=== PATIENT | male | born 1960 | race Caucasian/White ===

== ENCOUNTER 2019-03-12 08:28 | Outpatient (RCR) | payer MEDICARE, MEDICAID, SELFPAY | END 2019-04-11 23:59 | disposition home or self-care (01) | LOC: APT 08:28 | PROVIDERS: Family Provider Nurse Practitioner Family; PCP Nurse Practitioner; Visit Provider Nurse Practitioner | DX: R29.6 Repeated falls (principal) ==

== ENCOUNTER 2019-10-20 15:15 | Emergency (ER) | payer MEDICARE, MEDICAID, SELFPAY ==
[2019-10-20 15:20] VITALS: BP 150/94; PULSE 95; RESP 18; TEMP 36.8; O2SAT 96; BMI 25.4
--- NOTE | 2019-10-20 15:32 | ED_ITS ---
Documented by User: SHARONA Fisher 10/21/19 07:10 HPI - Abdominal Pain General: Chief Complaint: Abdominal Pain Stated Complaint: r side pain Time Seen by Provider: 10/20/19 15:20 History of Present Illness: HPI narrative: Patient is a 59-year-old male who comes to the ED with right sided abdominal pain. Patient says symptoms started approximately 6 months ago. He has been dealing with the pain but these past couple days got worse and he wants to figure out what is going on. Pain is on the right upper and lower quadrant of the abdomen. Described as kind of constant sharp pain. He rates the pain a 9 out of 10 currently. He also complains of having some episodic sharp right rib pain but currently he is not having any rib pain. Denies any fever, chills, nausea/vomiting, heart palpations, diarrhea, constipation, blood in the stool, dysuria, hematuria or past history of kidney stones. Associated Symptoms: Denies chills, constipation, diarrhea, dysuria, fever(s), hematochezia, hematuria, nausea and vomiting Review of Systems Const: Denies: fever(s), chills or fatigue Eyes: Denies: change in vision or eye discomfort ENMT: Denies: throat pain, odynophagia, nasal discharge or nasal congestion Card: Denies: chest pain, palpitations, edema, swelling of feet/ankles, dyspnea on exertion or orthopnea Resp: Denies: dyspnea, productive cough or non-productive cough GI: Reports: abdominal pain (Right side ); Denies: nausea, vomiting, diarrhea, constipation or hematochezia : Denies: flank pain, difficulty urinating, dysuria or hematuria Musc: Denies: neck pain, back pain or extremity swelling Skin/Breast: Denies: rash or new lesions Neuro: Denies: headache(s), numbness in extremities or weakness in extremities Physical Exam Const: COMMON NORMALS: patient oriented x3 and alert GENERAL APPEARANCE: cooperative HENMT: COMMON NORMALS: normocephalic HEAD & SCALP: normocephalic MOUTH: Normal oral and palatal mucosa present THROAT: posterior oropharynx normal and uvula midline Eye: COMMON NORMALS: Equal, round and reactive pupils present PUPIL: Yes Equal, round and reactive pupils present Neck/C-Spine: COMMON NORMALS: supple GENERAL: Yes normal visual inspection Resp: COMMON NORMALS: normal respiratory effort, No retractions, No use of accessory muscles and clear to auscultation bilaterally AUSCULTATION: clear to auscultation bilaterally Cardio: COMMON NORMALS: regular rate, regular rhythm, S1 normal heart sound present, S2 normal heart sound present, No gallops present (Cardio), No clicks present (Cardio), No murmurs present (Cardio) and Peripheral pulses 2+ throughout RATE: regular rate RHYTHM: regular rhythm HEART SOUNDS: S1 normal heart sound present and S2 normal heart sound present PERIPHERAL PULSES: Peripheral pulses 2+ throughout GI: COMMON NORMALS: Normal to inspection, nondistended, normoactive bowel sounds present, Soft to palpation and no masses PALPATION: Yes Soft to palpation and Yes Tenderness to palpation present (GI) Details: RLQ and RUQ OTHER: Patient is having pain and tenderness on the right upper and right lower quadrant of the abdomen. : COMMON NORMALS: Yes no CVA tenderness BLADDER/KIDNEY EXAM: Yes no CVA tenderness Back/Pelvis: COMMON NORMALS: no CVA tenderness Extremity: COMMON NORMALS: normal to inspection and no pedal edema Neuro: COMMON NORMALS: patient oriented x3 SENSORIUM/ORIENTATION: Yes alert GAIT: Yes Normal gait present Skin: COMMON NORMALS: no rashes or lesions noted GENERAL SKIN EXAM: no rashes or lesions noted and dry skin Course Vital Signs: Vital signs: Vital Signs Temperature 98.3 F 10/20/19 15:20 Pulse Rate 93 10/20/19 18:36 Respiratory Rate 18 10/20/19 18:36 Blood Pressure 134/82 10/20/19 18:36 Pulse Oximetry 94 10/20/19 18:36 MDM - Abdominal Pain Lab Data: Attestation: I reviewed the patient's lab results. Labs: Lab Results 10/20/19 10/20/19 10/20/19 Range/Units 15:49 16:00 16:00 WBC 17.1 H (4.0-10.0) 10^3/ uL RBC 4.55 (4.1-5.3) 10^6/u L Hgb 15.0 (11.7-16.6) g/dL Hct 45.2 (42.0-52.0) % MCV 99.3 H (80-94) fL MCH 33.0 (28.0-34.0) pg MCHC 33.2 (30.0-36.0) g/dL RDW 13.6 (12.1-15.1) % Plt Count 661 H (130-400) 10^3/c mm MPV 9.5 (7.4-10.4) fL Neut % (Auto) 78.1 % Lymph % (Auto) 8.8 % [place] % (Auto) 9.9 % Eos % (Auto) 1.1 % Baso % (Auto) 1.5 % Neut # (Auto) 13.41 H (1.8-7.7) 10^3/u L Lymph # (Auto) 1.5 (0.8-4.8) 10^3/u L [place] # (Auto) 1.7 H (0.2-0.9) 10^3/u L Eos # (Auto) 0.2 (0.0-0.8) 10^3/u L Baso # (Auto) 0.3 H (0.0-0.1) 10^3/u L Nucleated RBC % (a uto) 0 % Nucleated RBCs # 0.0 /100WBC Sodium 135 L (136-145) mmol/L Potassium 4.3 (3.5-5.1) mmol/L Chloride 101 (98-107) mmol/L Carbon Dioxide 21 L (22-29) mmol/L Anion Gap 17.3 (5-19) BUN 14 (6-20) mg/dL Creatinine 0.9 (0.7-1.2) mg/dL GFR Calculation 87.0 L (90-130) mL/min Glucose 99 (65-115) mg/dL Calculated Osmolal ity 276 L (285-295) mOsm/k g Calcium 10.3 (8.5-10.5) mg/dL Total Bilirubin 0.5 (0.15-1.2) mg/dL AST 35 (0-40) U/L ALT 21 (0-41) U/L Alkaline Phosphata se 100 (40-130) IU/L Total Protein 8.0 (6.6-8.7) g/dL Albumin 5.0 (3.5-5.2) g/dL Globulin 3.0 (1.3-4.6) g/dL Lipase 101 H (13-60) U/L Urine Color Yellow (Yellow) Urine Appearance Clear (CLEAR) Urine pH 5 (5-7) Ur Specific Gravit y 1.015 (1.005-1.030) Urine Protein Neg (Negative) Urine Glucose (UA) Norm (Normal) Urine Ketones 1+ H (Negative) Urine Blood Neg (Negative) Urine Nitrate Negative (Negative) Urine Bilirubin Neg (NEGATIVE) Urine Urobilinogen 1 H (Negative) mg/dL Ur Leukocyte Mattie ase Negative (Negative) Imaging Data ^: CXR: Attestation: I personally reviewed and interpreted this imaging study as follows: Radiologist's impression: [address] [address] XRay Report Signed Patient: Rex Alvarez Unit #: [id number] : 1960 Age/Sex: 59 / M ADM Date: 10/20/19 Loc: ER Room/Bed: Attending Dr: Ordering Provider/Ordering MD: Sheldon Gamez Date of Service: 10/20/19 Procedure(s): XR chest 1V portable [id number] Accession Number(s): [id number] Report Number: [id number] PROCEDURE INFORMATION: Exam: XR Chest, 1 View Exam date and time: 10/20/2019 4:14 PM Age: 59 years old Clinical indication: Pain; Other: Righ rib; Additional info: Right rib pain TECHNIQUE: Imaging protocol: XR of the chest Views: 1 view. COMPARISON: CR Chest 1 [place] [id number] 11/03/2017 6:23 PM FINDINGS: Lungs: Unchanged severe hyperinflation and mild fibrosis compatible with COPD. No consolidation. Vascularity is within normal limits. Pleural space: Unremarkable. No pleural effusion. No pneumothorax. Heart/Mediastinum: Unremarkable. No cardiomegaly. Bones/joints: No acute abnormality. XR/XR chest 1V portable [id number] IMPRESSION: No acute findings. Probable severe COPD. Dictated By: Joanna Farias Signed By: Joanna Farias Signed Date/Time: 10/20/19 1630 DD/ 1628 Discharge Plan Discharge Patient Disposition: Home Clinical Impression: Right-sided abdominal pain of unknown cause Condition: Stable Prescriptions: No Action Tylenol 325 mg Tablet 325 mg PO QID PRN (Reason: Pain) RF: 0 atorvastatin 20 mg tablet 20 mg PO DAILY RF: 0 clopidogrel 75 mg tablet 75 mg PO DAILY RF: 0 lisinopril 40 mg tablet 40 mg PO DAILY RF: 0 Discharge Orders: Discharge Order (Routine); Ordered 10/20/19 Ordered By: Maya Finley Referrals: Nuzhat Patino, JUDY [Primary Care Provider] - Patient Instructions: Abdominal Pain (ED) Activity Restrictions/Additional Instructions: Please followup with primary care in 1-2 weeks for continued pain. Discharge Date/Time: 10/20/19 18:51 Sign Out Sign Out Data: Patient Sign Out occurred on 10/20/19 at 17:10. Patient's care was discussed, and care was transferred from to SHARONA Ferrera. Coding Level of Care Code ED Utilization Management Nurse for Chg Fwd Exam Comprehensive Documented by User: SHARONA Ferrera 10/20/19 19:07 HPI - Abdominal Pain General: Chief Complaint: Abdominal Pain Stated Complaint: r side pain Time Seen by Provider: 10/20/19 15:20 Course Vital Signs: Vital signs: Vital Signs Temperature 98.3 F 10/20/19 15:20 Pulse Rate 93 10/20/19 18:36 Respiratory Rate 18 10/20/19 18:36 Blood Pressure 134/82 10/20/19 18:36 Pulse Oximetry 94 10/20/19 18:36 MDM - Abdominal Pain MDM Narrative: Medical decision making narrative: Patient is a nice 59-year-old male who presents to ED today with a complaint of right-sided abdominal pain over the last 6 months. Patient tells me he is not having any nausea, vomiting, diarrhea, constipation. He is urinating normally. No fevers. He states pain seems to be slightly worse when he lies on his right side. Patient's lab work today showing leukocytosis at 17.1. Chemistry panel overall looks good. Lipase is mildly elevated however he does not have any signs or symptoms of acute pancreatitis. Urine does not look suspicious for infection. CT scan w/o acute abnormality (actual dictation does report inflammatory perinephric stranding-I spoke to radiologist on this who stated this was not overly abnormal and very mild-she stated this would not be due to infection or other acute process). Recommend patient follow up with primary care for further evaluation. Patient did mention previous thoracic back surgeries. Possible etiology could include thoracic nerve pain. Lab Data: Labs: Lab Results 10/20/19 10/20/19 10/20/19 Range/Units 15:49 16:00 16:00 WBC 17.1 H (4.0-10.0) 10^3/ uL RBC 4.55 (4.1-5.3) 10^6/u L Hgb 15.0 (11.7-16.6) g/dL Hct 45.2 (42.0-52.0) % MCV 99.3 H (80-94) fL MCH 33.0 (28.0-34.0) pg MCHC 33.2 (30.0-36.0) g/dL RDW 13.6 (12.1-15.1) % Plt Count 661 H (130-400) 10^3/c mm MPV 9.5 (7.4-10.4) fL Neut % (Auto) 78.1 % Lymph % (Auto) 8.8 % [place] % (Auto) 9.9 % Eos % (Auto) 1.1 % Baso % (Auto) 1.5 % Neut # (Auto) 13.41 H (1.8-7.7) 10^3/u L Lymph # (Auto) 1.5 (0.8-4.8) 10^3/u L [place] # (Auto) 1.7 H (0.2-0.9) 10^3/u L Eos # (Auto) 0.2 (0.0-0.8) 10^3/u L Baso # (Auto) 0.3 H (0.0-0.1) 10^3/u L Nucleated RBC % (a uto) 0 % Nucleated RBCs # 0.0 /100WBC Sodium 135 L (136-145) mmol/L Potassium 4.3 (3.5-5.1) mmol/L Chloride 101 (98-107) mmol/L Carbon Dioxide 21 L (22-29) mmol/L Anion Gap 17.3 (5-19) BUN 14 (6-20) mg/dL Creatinine 0.9 (0.7-1.2) mg/dL GFR Calculation 87.0 L (90-130) mL/min Glucose 99 (65-115) mg/dL Calculated Osmolal ity 276 L (285-295) mOsm/k g Calcium 10.3 (8.5-10.5) mg/dL Total Bilirubin 0.5 (0.15-1.2) mg/dL AST 35 (0-40) U/L ALT 21 (0-41) U/L Alkaline Phosphata se 100 (40-130) IU/L Total Protein 8.0 (6.6-8.7) g/dL Albumin 5.0 (3.5-5.2) g/dL Globulin 3.0 (1.3-4.6) g/dL Lipase 101 H (13-60) U/L Urine Color Yellow (Yellow) Urine Appearance Clear (CLEAR) Urine pH 5 (5-7) Ur Specific Gravit y 1.015 (1.005-1.030) Urine Protein Neg (Negative) Urine Glucose (UA) Norm (Normal) Urine Ketones 1+ H (Negative) Urine Blood Neg (Negative) Urine Nitrate Negative (Negative) Urine Bilirubin Neg (NEGATIVE) Urine Urobilinogen 1 H (Negative) mg/dL Ur Leukocyte Mattie ase Negative (Negative) Imaging Data ^: CT Abd/Pel: Radiologist's impression: [place] [address] CT Scan Report Signed Patient: Rex Alvarez Unit #: [id number] : 1960 Age/Sex: 59 / M ADM Date: 10/20/19 Loc: ER Room/Bed: Attending Dr: Ordering Provider/Ordering MD: Sheldon Gamez Date of Service: 10/20/19 Procedure(s): CT abdomen pelvis w con* [id number] Accession Number(s): [id number] Report Number: [id number] PROCEDURE INFORMATION: Exam: CT Abdomen And Pelvis With Contrast Exam date and time: 10/20/2019 4:33 PM Age: 59 years old Clinical indication: Abdominal pain; Localized; Right; Additional info: Right side abdominal pain TECHNIQUE: Imaging protocol: Computed tomography of the abdomen and pelvis with intravenous contrast. Radiation optimization: All CT scans at this facility use at least one of these dose optimization techniques: automated exposure control; mA and/or kV adjustment per patient size (includes targeted exams where dose is matched to clinical indication); or iterative reconstruction. Contrast material: OMNI 300; Contrast volume: 95 ml; Contrast route: INTRAVENOUS (IV); COMPARISON: CT Chest/Abdomen/Pelvis w IV* 03/08/2016 3:42 PM RADIATION DOSE METRICS: Total DLP (mGy-cm): 717.87 FINDINGS: Lungs: There is subpleural atelectasis of the dependent portions of the lungs. Liver: There is a diffuse decrease in hepatic parenchymal density, consistent with fatty infiltration. Gallbladder and bile ducts: Normal. No calcified stones. No ductal dilation. Pancreas: Normal. No ductal dilation. Spleen: Normal. No splenomegaly. Adrenals: Normal. No mass. Kidneys and ureters: There is no evidence of hydronephrosis. There is no evidence of renal calcifications. There is inflammatory perinephric stranding. There is a 1.5 cm midpole simple cyst in the right kidney. Stomach and bowel: Extensive diverticulosis is present in the distal colon. The wall of the distal colon is thickened but collapsed. This appearance may reflect lack of distention however mild colitis cannot be excluded. There is no evidence of intestinal perforation or obstruction. Appendix: A normal appendix is identified. Intraperitoneal space: Unremarkable. No free air. No significant fluid collection. Vasculature: Unremarkable.No abdominal aortic aneurysm. Lymph nodes: Unremarkable.No enlarged lymph nodes. Bladder: There is nonspecific bladder wall thickening. This may be related to incomplete distention. Reproductive: Unremarkable as visualized. Bones/joints: Severe degenerative changes are noted especially in the lower lumbar spine. No acute bony abnormality. Soft tissues: There is a fat-containing umbilical hernia. CT/CT abdomen pelvis w con* [id number] IMPRESSION: 1. The wall of the distal colon is thickened but collapsed. This appearance may reflect lack of distention however mild colitis cannot be excluded. There is diverticulosis without diverticulitis. 2. Unremarkable appendix. Unremarkable gallbladder. No hydronephrosis or obstructing calculi. COMMENTS: Consistent with the [employer]'s Incidental Findings Committee white paper (J Am Jermaine Radiol 2018): Any incidental renal lesion less than 1.0 cm or classified as too small to characterize, or any incidental cystic renal lesion characterized as simple-appearing, is likely benign. No follow-up imaging is recommended for these lesions per consensus recommendations based on imaging criteria. Radiation Dose CTDIVOL = (mGy): DLP = 717.87 (mGy-cm) Dictated By: Joanna Farias Signed By: Joanna Farias Signed Date/Time: 10/20/191733 DD/ 31 Discharge Plan Discharge Patient Disposition: Home Clinical Impression: Right-sided abdominal pain of unknown cause Condition: Stable Prescriptions: No Action Tylenol 325 mg Tablet 325 mg PO QID PRN (Reason: Pain) RF: 0 atorvastatin 20 mg tablet 20 mg PO DAILY RF: 0 clopidogrel 75 mg tablet 75 mg PO DAILY RF: 0 lisinopril 40 mg tablet 40 mg PO DAILY RF: 0 Discharge Orders: Discharge Order (Routine); Ordered 10/20/19 Ordered By: Maya Finley Referrals: Nuzhat Patino, [facility] [Primary Care Provider] - Patient Instructions: Abdominal Pain (ED) Activity Restrictions/Additional Instructions: Please followup with primary care in 1-2 weeks for continued pain. Discharge Date/Time: 10/20/19 18:51 Sign Out Sign Out Data: Patient Sign Out occurred on 10/20/19 at 17:10. Patient's care was discussed, and care was transferred from to SHARONA Ferrera. Coding Level of Care Code ED Utilization Management Nurse for Chg Fwd Exam Comprehensive
--- NOTE | 2019-10-20 15:44 | XRR_ITS ---
PROCEDURE INFORMATION: Exam: XR Chest, 1 View Exam date and time: 10/20/2019 4:14 PM Age: 59 years old Clinical indication: Pain; Other: Righ rib; Additional info: Right rib pain TECHNIQUE: Imaging protocol: XR of the chest Views: 1 view. COMPARISON: CR Chest 1 [place] [id number] 11/03/2017 6:23 PM FINDINGS: Lungs: Unchanged severe hyperinflation and mild fibrosis compatible with COPD. No consolidation. Vascularity is within normal limits. Pleural space: Unremarkable. No pleural effusion. No pneumothorax. Heart/Mediastinum: Unremarkable. No cardiomegaly. Bones/joints: No acute abnormality. XR/XR chest 1V portable [id number] IMPRESSION: No acute findings. Probable severe COPD.
--- NOTE | 2019-10-20 15:44 | CTR_ITS ---
PROCEDURE INFORMATION: Exam: CT Abdomen And Pelvis With Contrast Exam date and time: 10/20/2019 4:33 PM Age: 59 years old Clinical indication: Abdominal pain; Localized; Right; Additional info: Right side abdominal pain TECHNIQUE: Imaging protocol: Computed tomography of the abdomen and pelvis with intravenous contrast. Radiation optimization: All CT scans at this facility use at least one of these dose optimization techniques: automated exposure control; mA and/or kV adjustment per patient size (includes targeted exams where dose is matched to clinical indication); or iterative reconstruction. Contrast material: OMNI 300; Contrast volume: 95 ml; Contrast route: INTRAVENOUS (IV); COMPARISON: CT Chest/Abdomen/Pelvis w IV* 03/08/2016 3:42 PM RADIATION DOSE METRICS: Total DLP (mGy-cm): 717.87 FINDINGS: Lungs: There is subpleural atelectasis of the dependent portions of the lungs. Liver: There is a diffuse decrease in hepatic parenchymal density, consistent with fatty infiltration. Gallbladder and bile ducts: Normal. No calcified stones. No ductal dilation. Pancreas: Normal. No ductal dilation. Spleen: Normal. No splenomegaly. Adrenals: Normal. No mass. Kidneys and ureters: There is no evidence of hydronephrosis. There is no evidence of renal calcifications. There is inflammatory perinephric stranding. There is a 1.5 cm midpole simple cyst in the right kidney. Stomach and bowel: Extensive diverticulosis is present in the distal colon. The wall of the distal colon is thickened but collapsed. This appearance may reflect lack of distention however mild colitis cannot be excluded. There is no evidence of intestinal perforation or obstruction. Appendix: A normal appendix is identified. Intraperitoneal space: Unremarkable. No free air. No significant fluid collection. Vasculature: Unremarkable.No abdominal aortic aneurysm. Lymph nodes: Unremarkable.No enlarged lymph nodes. Bladder: There is nonspecific bladder wall thickening. This may be related to incomplete distention. Reproductive: Unremarkable as visualized. Bones/joints: Severe degenerative changes are noted especially in the lower lumbar spine. No acute bony abnormality. Soft tissues: There is a fat-containing umbilical hernia. CT/CT abdomen pelvis w con* [id number] IMPRESSION: 1. The wall of the distal colon is thickened but collapsed. This appearance may reflect lack of distention however mild colitis cannot be excluded. There is diverticulosis without diverticulitis. 2. Unremarkable appendix. Unremarkable gallbladder. No hydronephrosis or obstructing calculi. COMMENTS: Consistent with the [employer]'s Incidental Findings Committee white paper (J Am Jermaine Radiol 2018): Any incidental renal lesion less than 1.0 cm or classified as too small to characterize, or any incidental cystic renal lesion characterized as simple-appearing, is likely benign. No follow-up imaging is recommended for these lesions per consensus recommendations based on imaging criteria. Radiation Dose CTDIVOL = (mGy): DLP = 717.87 (mGy-cm)
[2019-10-20 16:05] LABS: Add Urine Microscopic? NO
[2019-10-20 16:08] VITALS: RESP 18
[2019-10-20] MEDS: ondansetron 2 mg/ML SDV 2 mL 4 MG IVP (16:08)
[2019-10-20] MEDS: morphine 4 mg/mL SDV 1 mL IVP (16:08)
[2019-10-20 16:10] LABS: Basophils # 0.3 10^3/uL (0.0-0.1); Basophils % 1.5 %; Eosinophils # 0.2 10^3/uL (0.0-0.8); Eosinophils % 1.1 %; Hematocrit 45.2 % (42.0-52.0); Lymphocytes # 1.5 10^3/uL (0.8-4.8); Lymphocytes % 8.8 %; Mean Corpuscular HGB Conc 33.2 g/dL (30.0-36.0); Mean Corpuscular Volume 99.3 fL (80-94); Mean Platelet Volume 9.5 fL (7.4-10.4); Monocytes # 1.7 10^3/uL (0.2-0.9); Monocytes % 9.9 %; Neutrophils # 13.41 10^3/uL (1.8-7.7); Neutrophils % 78.1 %; Nucleated Red Blood Cells % 0 %; Platelet Count 661 10^3/cmm (130-400); Red Blood Count 4.55 10^6/uL (4.1-5.3); Red Cell Distribution Width 13.6 % (12.1-15.1); White Blood Count 17.1 10^3/uL (4.0-10.0)
[2019-10-20 16:19] LABS: Urine Appearance Clear (CLEAR); Urine Color Yellow (Yellow); pH Urine 5 (5-7)
[2019-10-20 16:20] LABS: Bilirubin Urine Neg (NEGATIVE); Blood Urine Neg (Negative); Glucose Urine UA Norm (Normal); Ketones Urine 1+ (Negative); Leukocyte Esterase Urine Negative (Negative); Nitrate Urine Negative (Negative); Protein Urine Neg (Negative); Specific Gravity, Urine 1.015 (1.005-1.030); Urobilinogen Urine 1 mg/dL (Negative)
[2019-10-20 16:25] LABS: Alanine Aminotransferase 21 U/L (0-41); Alkaline Phosphatase 100 IU/L (40-130); Anion Gap 17.3 (5-19); Aspartate Amino Transferase 35 U/L (0-40); Blood Urea Nitrogen 14 mg/dL (6-20); Calcium 10.3 mg/dL (8.5-10.5); Carbon Dioxide 21 mmol/L (22-29); Chloride 101 mmol/L (98-107); Glucose 99 mg/dL (65-115); Lipase 101 U/L (13-60); Osmolality Calculated 276 mOsm/kg (285-295); Potassium 4.3 mmol/L (3.5-5.1); Sodium 135 mmol/L (136-145); Total Bilirubin 0.5 mg/dL (0.15-1.2)
[2019-10-20] MEDS: iohexol 300 mg/mL 100 mL Btl IV (17:10)
[2019-10-20 17:16] VITALS: BP 145/97; RESP 16
--- NOTE | 2019-10-20 17:35 | PC.NURSE ---
patient back from ct
[2019-10-20 18:36] VITALS: BP 134/82; PULSE 93; RESP 18; O2SAT 94
== END 2019-10-20 18:51 | disposition home or self-care (01) ==
PROVIDERS: Physician Assistant; Emergency Provider Physician Assistant; PCP Nurse Practitioner
DX: R10.9 Unspecified abdominal pain (principal); Z79.02 Long term (current) use of antithrombotics/antiplatelets
CPT/HCPCS: 12345; 36415; 71045; 74177; 80053; 81003; 83690; 85025; 87040; 96374; 96375; 99283; J2270; J2405; Q9967

== ENCOUNTER → 2019-10-22 16:48 | Outpatient (BNVA) | payer MEDICARE, MEDICAID, SELFPAY | PROVIDERS: PCP Nurse Practitioner; Visit Provider Nurse Practitioner Family | DX: K76.0 Fatty (change of) liver, not elsewhere classified (principal); R10.9 Unspecified abdominal pain; K57.90 Diverticulosis of intestine, part unspecified, without perforation or abscess without bleeding; N28.1 Cyst of kidney, acquired; D72.829 Elevated white blood cell count, unspecified | CPT/HCPCS: 85025 ==

== ENCOUNTER → 2019-11-20 13:38 | Outpatient (BNVA) | payer MEDICARE, MEDICAID, SELFPAY | PROVIDERS: PCP Nurse Practitioner; Visit Provider Nurse Practitioner Family | DX: I10 Essential (primary) hypertension (principal); E78.5 Hyperlipidemia, unspecified; K76.0 Fatty (change of) liver, not elsewhere classified; Z72.0 Tobacco use; Z86.73 Personal history of transient ischemic attack (TIA), and cerebral infarction without residual deficits | CPT/HCPCS: 80053; 80061; 84443; 85025 ==

== ENCOUNTER → 2019-12-02 11:22 | Outpatient (BNVA) | payer MEDICARE, MEDICAID, SELFPAY | PROVIDERS: PCP Nurse Practitioner; Visit Provider Internal Medicine | DX: Z11.59 Encounter for screening for other viral diseases (principal) | CPT/HCPCS: 87635 ==

== ENCOUNTER 2019-12-08 08:08 | Day surgery (SDC) | payer MEDICARE, MEDICAID, SELFPAY ==
[2019-12-04 14:31] VITALS: BMI 22.6
[2019-12-08] MEDS: sodium chloride 0.9% 1,000 ML 30 ML IV (08:35)
[2019-12-08 08:38] VITALS: BP 145/97; PULSE 87; RESP 18; TEMP 37; O2SAT 98
--- NOTE | 2019-12-08 08:48 | ANES.PREANE2 ---
Pre-Anesthetic Assessment Pre-Anesthetic Assessment: Height/Weight: Height 1.98 m Weight 88.904 kg Temp Pulse Resp BP Pulse Ox 98.6 F 87 18 145/97 98 12/08/19 08:38 12/08/19 08:38 12/08/19 08:38 12/08/19 08:38 12/08/19 08:38 Preop Diagnosis: RUQ pain Proposed Procedure: Operation Date: 12/08/19 09:00 Proposed Procedures p EGD [id number] R10.11(Not Applicable) - Chris Sequeira MD s Colonoscopy(Not Applicable) - Chris Sequeira MD Familial anesthetic complications: none Was Beta Dc taken within 24 hours: N/A Last intake: Intake Last Liquid Date 12/07/19 Last Liquid Time 23:00 Last Solid Date 12/06/19 Social: Social History: Alcohol (a beer daily) and Tobacco Exam: Pre-Anes Outpt Exam: alert, oriented x 3, clear to auscultation bilaterally and regular rate & rhythm Airway: Cervical ROM: WNL MP: 3 Dentition: Other (missing) CV/HEM: CV/HEM: HTN Hepatic: Comments: fatty liver Metabolic: Metabolic: Hyperlipidemia Neuropsych: Neuropsych: TIA (on plavix) Comments: Patient states he took plavix this morning Anesthetic Plan: ASA status: 2 Anesthesia: MAC Risk of > 500 ml blood loss (7ml/kg in children): No Meds/Allergies Current Medications: Current Medications Generic Name Dose Route Start Last Admin Trade Name Freq PRN Reason Stop Dose Admin Sodium Chloride 1,000 mls @ 30 ml s/hr 12/08/19 08:30 12/08/19 08:35 Sodium Chloride 0.9% IV 12/09/19 08:29 30 mls/hr .Q24H VITA Administration PFSH Anesthesia PFSH: Medical History Amputation of right great toe Cervical disc disorder with myelopathy, mid-cervical region, unspecified level Chronic back pain Cyst of right kidney DDD (degenerative disc disease) Diverticulosis DJD (degenerative joint disease) Dyslipidemia Essential (primary) hypertension Fatty liver FH: CVA (cerebrovascular accident) History of TIA (transient ischemic attack) Surgical History History of discectomy History of laminectomy History of lumbar laminectomy for spinal cord decompression Family History Other Cancer Denies family history of Bleeding disorder Social History Smoking and tobacco status: current every day smoker Second hand smoke exposure: Yes Smoking risk assessment/counseling performed?: Yes Alcohol intake: current Desire information about alcohol rehabilitation?: No Counseling given: No Desire information about substance/drug rehabilitation?: No Counseling given: No Adopted: No Caregiver/support person: No Lives independently: Yes Household members: children Marital status: Number of children: 2 service: No Current occupational status: disabled History of recent travel: No Current gender identity: Male Data Anesthesia Cardiac Studies: No Data to Display
--- NOTE | 2019-12-08 09:10 | W.PM.OPSUD ---
Surgery/Procedure H&P Update DATE OF PROCEDURE: December 08, 2019 DATE H&P PERFORMED: 11/19/19 PREOP DIAGNOSIS: RUQ pain PLANNED PROCEDURE: Operation Date: 12/08/19 09:00 Proposed Procedures p EGD [id number] R10.11(Not Applicable) - Chris Sequeira MD s Colonoscopy(Not Applicable) - Chris Sequeira MD
[2019-12-08 09:41] VITALS: BP 109/76; PULSE 78; RESP 16; TEMP 36.9; O2SAT 96
[2019-12-08 09:57] VITALS: BP 111/83; PULSE 75; RESP 16; O2SAT 97
--- NOTE | 2019-12-08 10:15 | ANE.PACU2 ---
Inpatient post-anesthesia follow up: Airway intact: Yes Vital signs: Temperature 98.4 F Pulse Rate 75 Respiratory Rate 16 Blood Pressure 111/83 Pulse Oximetry 97 Oxygen Delivery Me thod Room Air Oxygen Flow Rate Fraction of Inspir ed Oxygen Hydration adequate: Yes Nausea and vomiting: No Pain level: 1 Mental status: Baseline
== END 2019-12-08 10:05 | disposition home or self-care (01) ==
PROVIDERS: PCP Nurse Practitioner Family; Visit Provider Internal Medicine
PROC: 0DJ08ZZ Inspection of Upper Intestinal Tract, Via Natural or Artificial Opening Endoscopic (ICD-10-PCS; CPT 43235; principal; 2019-12-08 09:00)
PROC: 0DJD8ZZ Inspection of Lower Intestinal Tract, Via Natural or Artificial Opening Endoscopic (ICD-10-PCS; CPT 45378; 2019-12-08 09:00)
DX: R10.11 Right upper quadrant pain (principal); K57.30 Diverticulosis of large intestine without perforation or abscess without bleeding; K22.70 Barrett's esophagus without dysplasia; I10 Essential (primary) hypertension; Z86.73 Personal history of transient ischemic attack (TIA), and cerebral infarction without residual deficits; E78.5 Hyperlipidemia, unspecified; Z79.02 Long term (current) use of antithrombotics/antiplatelets; F17.210 Nicotine dependence, cigarettes, uncomplicated
CPT/HCPCS: 12345; 43239; 45378; 88305; J2704; J7030

== ENCOUNTER → 2020-04-13 15:38 | Outpatient (BNVA) | payer MEDICARE, MEDICAID, SELFPAY | PROVIDERS: PCP Nurse Practitioner Family; Visit Provider Nurse Practitioner Family | DX: S91.301A Unspecified open wound, right foot, initial encounter (principal); X58.XXXA Exposure to other specified factors, initial encounter | CPT/HCPCS: 73630; 87070; 87075; 87077; 87184; 87205 ==

== ENCOUNTER 2020-06-08 06:00 | Outpatient (RCR) | payer MEDICARE, MEDICAID, SELFPAY | END 2020-06-09 23:59 | disposition home or self-care (01) | LOC: AOT 06:00 | PROVIDERS: PCP Nurse Practitioner Family; Referring Provider Nurse Practitioner Family; Visit Provider Nurse Practitioner Family | DX: R29.6 Repeated falls (principal); Z86.73 Personal history of transient ischemic attack (TIA), and cerebral infarction without residual deficits; Z74.09 Other reduced mobility; M54.9 Dorsalgia, unspecified; M89.29 Other disorders of bone development and growth, multiple sites; G89.29 Other chronic pain; S98.111D Complete traumatic amputation of right great toe, subsequent encounter; X58.XXXD Exposure to other specified factors, subsequent encounter | CPT/HCPCS: 97166; 97530 ==

== ENCOUNTER 2020-06-29 09:34 | Outpatient (CLI) | payer MEDICARE, MEDICAID, SELFPAY | END 2020-06-29 09:35 | disposition home or self-care (01) | LOC: WOUND 09:35 | PROVIDERS: PCP Nurse Practitioner Family; Visit Provider Thoracic Surgery (Cardiothoracic Vascular Surgery) | DX: I96 Gangrene, not elsewhere classified (principal); Z20.822 Contact with and (suspected) exposure to COVID-19; L89.894 Pressure ulcer of other site, stage 4; Z11.52 Encounter for screening for COVID-19 | CPT/HCPCS: 11044; 87635; G0463 ==

== ENCOUNTER 2020-07-05 07:59 | Day surgery (SDC) | payer MEDICARE, MEDICAID, SELFPAY ==
[2020-07-02 14:05] VITALS: BMI 23.1
--- NOTE | 2020-07-05 08:33 | ANES.PREANE2 ---
Pre-Anesthetic Assessment Pre-Anesthetic Assessment: Height/Weight: Height 1.98 m Weight 90.718 kg Preop Diagnosis: Nonhealing ulcer right third toe Proposed Procedure: Operation Date: 07/05/20 09:25 Proposed Procedures p Amputation Right Third Toe(Right) - Noah Simental MD Social: Social History: Tobacco Airway: Submandibular: WNL Cervical ROM: WNL MP: 1 Pulmonary: Pulmonary: None reported CV/HEM: CV/HEM: HTN Neuropsych: Neuropsych: CVA Anesthetic Plan: ASA status: 3 Anesthesia: Anesthesia Evaluation and General PFSH Anesthesia PFSH: Medical History Amputation of right great toe Cervical disc disorder with myelopathy, mid-cervical region, unspecified level Chronic back pain Cyst of right kidney DDD (degenerative disc disease) Diverticulosis DJD (degenerative joint disease) Dyslipidemia Essential (primary) hypertension Fatty liver FH: CVA (cerebrovascular accident) History of TIA (transient ischemic attack) Surgical History History of discectomy History of laminectomy History of lumbar laminectomy for spinal cord decompression Family History Other Cancer Denies family history of Bleeding disorder Social History Smoking and tobacco status: current every day smoker Second hand smoke exposure: Yes Smoking risk assessment/counseling performed?: Yes Alcohol intake: current Desire information about alcohol rehabilitation?: No Counseling given: No Desire information about substance/drug rehabilitation?: No Counseling given: No Adopted: No Caregiver/support person: No Lives independently: Yes Household members: children Marital status: Number of children: 2 service: No Current occupational status: disabled History of recent travel: No Current gender identity: Male Data Anesthesia Cardiac Studies: No Data to Display
[2020-07-05 08:38] VITALS: BP 122/73; PULSE 79; RESP 18; TEMP 36.8; O2SAT 98
[2020-07-05] MEDS: sodium chloride 0.9% 1,000 ML 30 ML IV (08:38)
[2020-07-05 08:55] LABS: Basophils # 0.4 10^3/uL (0.0-0.1); Basophils % 3.2 %; Eosinophils # 0.4 10^3/uL (0.0-0.8); Eosinophils % 3.7 %; Hematocrit 44.2 % (42.0-52.0); Hemoglobin 14.8 g/dL (11.7-16.6); Lymphocytes # 1.5 10^3/uL (0.8-4.8); Lymphocytes % 12.8 %; Mean Corpuscular HGB Conc 33.5 g/dL (30.0-36.0); Mean Corpuscular Hemoglobin 32.1 pg (28.0-34.0); Mean Corpuscular Volume 95.9 fL (80-94); Mean Platelet Volume 9.7 fL (7.4-10.4); Monocytes # 1.2 10^3/uL (0.2-0.9); Monocytes % 10.3 %; Neutrophils # 7.98 10^3/uL (1.8-7.7); Neutrophils % 69.5 %; Nucleated Red Blood Cells % 0 %; Platelet Count 803 10^3/cmm (130-400); Red Blood Count 4.61 10^6/uL (4.1-5.3); Red Cell Distribution Width 13.2 % (12.1-15.1); White Blood Count 11.5 10^3/uL (4.0-10.0)
--- NOTE | 2020-07-05 09:08 | W.PM.OPSUD ---
Surgery/Procedure H&P Update DATE OF PROCEDURE: July 05, 2020 DATE H&P PERFORMED: 06/29/20 H&P UPDATE INFORMATION: I have reviewed H&P completed within last 30 days, I have examined patient prior to procedure and No changes to prior documentation PREOP DIAGNOSIS: Nonhealing ulcer right third toe PRIMARY INDICATION FOR PROCEDURE: Nonhealing ulcer right third toe with involvement of interphalangeal joint and angulation deformity. Severe peripheral neuropathy PLANNED PROCEDURE: Operation Date: 07/05/20 09:25 Proposed Procedures p Amputation Right Third Toe(Right) - Noah Simental MD
[2020-07-05 09:12] LABS: Anion Gap 21.2 (5-19); Blood Urea Nitrogen 10 mg/dL (6-20); Calcium 9.2 mg/dL (8.5-10.5); Carbon Dioxide 19 mmol/L (22-29); Chloride 103 mmol/L (98-107); Glomerular Filtration Rate 115.8 mL/min (90-130); Glucose 78 mg/dL (65-115); Osmolality Calculated 286 mOsm/kg (285-295); Potassium 4.2 mmol/L (3.5-5.1); Sodium 139 mmol/L (136-145)
[2020-07-05] MEDS: ceFAZolin 1,000 mg SDV 1000 MG IRRIGATION (09:44)
[2020-07-05] MEDS: lidocaine 1% INJ 20 mL SUBCUT (09:44)
[2020-07-05 10:27] VITALS: BP 131/83; PULSE 76; RESP 16; TEMP 36.6; O2SAT 97
[2020-07-05 10:30] VITALS: BP 119/83; PULSE 72; RESP 16; O2SAT 97
--- NOTE | 2020-07-05 10:33 | PM.OP ---
Operative Report Date of procedure: July 05, 2020 Pre-op Diagnosis: Nonhealing ulcer right third toe Post-op diagnosis: same Procedure Done: Right third toe amputation Specimens removed/disposition: Right third toe Surgeon: Noah Simental Anesthesia: MAC and Local Condition: stable Disposition: same day Brief History: Pleasant 60-year-old gentleman with bilateral severe peripheral neuropathy and prior amputations to the right great and second toe. He presented back to wound care services June 29 with a nonhealing ulcer over the dorsal distal interphalangeal joint of the deformed right third toe with extension down into the interphalangeal joint and exposed articular surface. Repetitive trauma and the disc configuration of this toe will not allow successful healing, particularly in the face of severe neuropathy. I have recommended amputation. He has concurred. Details of risk procedure Were reviewed. Proper consents have been reviewed and signed. Procedure: Mr. Alvarez was taken operating room theater and carefully position on the OR table. He received IV conscious sedation and laryngeal mask anesthesia. The entire right foot and lower leg was sterilely prepped and draped. 1% lidocaine was infiltrated as a digital block at the base of the right third toe. #15 scalpel blade was utilized to make an elliptical incision around the base of the toe and extend this deep to the metatarsophalangeal joint where associated ligaments and tendons were transected. The toe was then removed and sent to pathology for permanent analysis. Bone curette was then utilized to remove articular surface from the third metatarsal head. Once completed, patient received large volume irrigation with antibiotic solution. Hemostasis confirmed. The wound was then closed deep with interrupted 2-0 Vicryl suture. Skin was reapproximated in interrupted fashion with nylon suture. Sterile dressings were applied. He was awakened from anesthesia. He was separately taken to the outpatient surgery department in stable condition. He will follow-up with wound care services on Sunday at 10:15 AM.
[2020-07-05 10:35] VITALS: BP 134/85; PULSE 69; RESP 18; TEMP 36.5; O2SAT 97
[2020-07-05 11:00] VITALS: BP 135/72; PULSE 18; RESP 70; TEMP 36.5; O2SAT 96
[2020-07-05 11:09] VITALS: BP 124/77; PULSE 18; RESP 70; O2SAT 95
== END 2020-07-05 11:20 | disposition home or self-care (01) ==
PROVIDERS: PCP Nurse Practitioner Family; Visit Provider Thoracic Surgery (Cardiothoracic Vascular Surgery)
PROC: (CPT 28820; principal; 2020-07-05 09:15)
DX: L97.519 Non-pressure chronic ulcer of other part of right foot with unspecified severity (principal); I10 Essential (primary) hypertension; Z86.73 Personal history of transient ischemic attack (TIA), and cerebral infarction without residual deficits; M19.90 Unspecified osteoarthritis, unspecified site; E78.5 Hyperlipidemia, unspecified; F17.210 Nicotine dependence, cigarettes, uncomplicated
CPT/HCPCS: 28820; 80048; 85025; 88305; J0690; J2370; J2405; J2704; J3010; J7030

== ENCOUNTER 2020-07-07 15:27 | Outpatient (CLI) | payer MEDICARE, MEDICAID, SELFPAY | END 2020-07-07 15:28 | disposition home or self-care (01) | LOC: WOUND 15:29 | PROVIDERS: PCP Nurse Practitioner Family; Visit Provider Thoracic Surgery (Cardiothoracic Vascular Surgery) | DX: Z09 Encounter for follow-up examination after completed treatment for conditions other than malignant neoplasm (principal) | CPT/HCPCS: 99212 ==

== ENCOUNTER 2020-07-13 10:04 | Outpatient (CLI) | payer MEDICARE, MEDICAID, SELFPAY | END 2020-07-13 10:05 | disposition home or self-care (01) | LOC: WOUND 10:06 | PROVIDERS: PCP Nurse Practitioner Family; Visit Provider Thoracic Surgery (Cardiothoracic Vascular Surgery) | DX: Z89.421 Acquired absence of other right toe(s) (principal) | CPT/HCPCS: 99212 ==

== ENCOUNTER 2020-07-20 11:03 | Outpatient (CLI) | payer MEDICARE, MEDICAID, SELFPAY | END 2020-07-20 11:04 | disposition home or self-care (01) | LOC: WOUND 11:04 | PROVIDERS: PCP Nurse Practitioner Family; Visit Provider Thoracic Surgery (Cardiothoracic Vascular Surgery) | DX: Z89.421 Acquired absence of other right toe(s) (principal) | CPT/HCPCS: 99212 ==

== ENCOUNTER 2020-07-27 10:11 | Outpatient (CLI) | payer MEDICARE, MEDICAID, SELFPAY | END 2020-07-27 10:12 | disposition home or self-care (01) | LOC: WOUND 10:12 | PROVIDERS: PCP Nurse Practitioner Family; Visit Provider Thoracic Surgery (Cardiothoracic Vascular Surgery) | DX: Z09 Encounter for follow-up examination after completed treatment for conditions other than malignant neoplasm (principal) | CPT/HCPCS: 99212 ==

== ENCOUNTER → 2020-08-18 10:06 | Outpatient (BNVA) | payer MEDICARE, MEDICAID, SELFPAY | PROVIDERS: PCP Nurse Practitioner Family; Visit Provider Nurse Practitioner Family | DX: S91.102A Unspecified open wound of left great toe without damage to nail, initial encounter (principal); X58.XXXA Exposure to other specified factors, initial encounter | CPT/HCPCS: 73630 ==

== ENCOUNTER 2020-08-23 14:33 | Outpatient (CLI) | payer MEDICARE, MEDICAID, SELFPAY | END 2020-08-23 14:34 | disposition home or self-care (01) | LOC: WOUND 14:37 | PROVIDERS: PCP Nurse Practitioner Family; Visit Provider Thoracic Surgery (Cardiothoracic Vascular Surgery) | DX: Z09 Encounter for follow-up examination after completed treatment for conditions other than malignant neoplasm (principal) | CPT/HCPCS: G0463 ==

== ENCOUNTER → 2020-11-17 11:25 | Outpatient (BNVA) | payer MEDICARE, MEDICAID, SELFPAY | PROVIDERS: PCP Nurse Practitioner Family; Visit Provider Nurse Practitioner Family | DX: M79.673 Pain in unspecified foot (principal); S91.109A Unspecified open wound of unspecified toe(s) without damage to nail, initial encounter; S99.929A Unspecified injury of unspecified foot, initial encounter; Z89.421 Acquired absence of other right toe(s); S92.511A Displaced fracture of proximal phalanx of right lesser toe(s), initial encounter for closed fracture; M19.071 Primary osteoarthritis, right ankle and foot | CPT/HCPCS: 73630 ==

== ENCOUNTER 2020-11-23 13:29 | Outpatient (CLI) | payer MEDICARE, MEDICAID, SELFPAY | END 2020-11-23 13:30 | disposition home or self-care (01) | LOC: WOUND 13:31 | PROVIDERS: PCP Nurse Practitioner Family; Visit Provider Thoracic Surgery (Cardiothoracic Vascular Surgery) | DX: L97.512 Non-pressure chronic ulcer of other part of right foot with fat layer exposed (principal); F17.210 Nicotine dependence, cigarettes, uncomplicated | CPT/HCPCS: 11042; G0463 ==

== ENCOUNTER 2020-12-01 14:54 | Outpatient (CLI) | payer MEDICARE, MEDICAID, SELFPAY | END 2020-12-01 14:55 | disposition home or self-care (01) | LOC: WOUND 14:56 | PROVIDERS: PCP Nurse Practitioner Family; Visit Provider Thoracic Surgery (Cardiothoracic Vascular Surgery) | DX: I96 Gangrene, not elsewhere classified (principal); L97.512 Non-pressure chronic ulcer of other part of right foot with fat layer exposed; F17.210 Nicotine dependence, cigarettes, uncomplicated | CPT/HCPCS: 11042 ==

== ENCOUNTER 2020-12-08 13:53 | Outpatient (CLI) | payer MEDICARE, MEDICAID, SELFPAY | END 2020-12-08 13:54 | disposition home or self-care (01) | LOC: WOUND 13:54 | PROVIDERS: PCP Nurse Practitioner Family; Visit Provider Thoracic Surgery (Cardiothoracic Vascular Surgery) | DX: I96 Gangrene, not elsewhere classified (principal); L97.512 Non-pressure chronic ulcer of other part of right foot with fat layer exposed; F17.200 Nicotine dependence, unspecified, uncomplicated | CPT/HCPCS: 11042 ==

== ENCOUNTER 2020-12-28 10:14 | Outpatient (CLI) | payer MEDICARE, MEDICAID, SELFPAY | END 2020-12-28 10:15 | disposition home or self-care (01) | LOC: WOUND 10:16 | PROVIDERS: PCP Nurse Practitioner Family; Visit Provider Thoracic Surgery (Cardiothoracic Vascular Surgery) | DX: L97.522 Non-pressure chronic ulcer of other part of left foot with fat layer exposed (principal); F17.210 Nicotine dependence, cigarettes, uncomplicated | CPT/HCPCS: 11042 ==

== ENCOUNTER 2021-01-04 13:49 | Outpatient (CLI) | payer MEDICARE, MEDICAID, SELFPAY | END 2021-01-04 13:50 | disposition home or self-care (01) | LOC: WOUND 13:49 | PROVIDERS: PCP Nurse Practitioner Family; Visit Provider Nurse Practitioner Family | DX: I96 Gangrene, not elsewhere classified (principal); L97.522 Non-pressure chronic ulcer of other part of left foot with fat layer exposed; F17.210 Nicotine dependence, cigarettes, uncomplicated | CPT/HCPCS: 11042 ==

== ENCOUNTER 2021-01-18 13:10 | Outpatient (CLI) | payer MEDICARE, MEDICAID, SELFPAY | END 2021-01-18 13:11 | disposition home or self-care (01) | LOC: WOUND 13:11 | PROVIDERS: PCP Nurse Practitioner Family; Visit Provider Thoracic Surgery (Cardiothoracic Vascular Surgery) | DX: I96 Gangrene, not elsewhere classified (principal); L97.522 Non-pressure chronic ulcer of other part of left foot with fat layer exposed; F17.210 Nicotine dependence, cigarettes, uncomplicated | CPT/HCPCS: 11042 ==

== ENCOUNTER → 2021-01-20 14:30 | Outpatient (BNVA) | payer MEDICARE, MEDICAID, SELFPAY | PROVIDERS: PCP Nurse Practitioner Family; Visit Provider Thoracic Surgery (Cardiothoracic Vascular Surgery) | DX: L97.526 Non-pressure chronic ulcer of other part of left foot with bone involvement without evidence of necrosis (principal); M85.872 Other specified disorders of bone density and structure, left ankle and foot; M19.072 Primary osteoarthritis, left ankle and foot | CPT/HCPCS: 73630 ==

== ENCOUNTER 2021-02-01 13:13 | Outpatient (CLI) | payer MEDICARE, MEDICAID, SELFPAY | END 2021-02-01 13:14 | disposition home or self-care (01) | LOC: WOUND 13:13 | PROVIDERS: PCP Nurse Practitioner Family; Visit Provider Nurse Practitioner Family | DX: L97.522 Non-pressure chronic ulcer of other part of left foot with fat layer exposed (principal); F17.210 Nicotine dependence, cigarettes, uncomplicated | CPT/HCPCS: 11042 ==

== ENCOUNTER 2021-02-15 13:10 | Outpatient (CLI) | payer MEDICARE, MEDICAID, SELFPAY | END 2021-02-15 13:11 | disposition home or self-care (01) | LOC: WOUND 13:11 | PROVIDERS: PCP Nurse Practitioner Family; Visit Provider Emergency Medicine | DX: L97.522 Non-pressure chronic ulcer of other part of left foot with fat layer exposed (principal); F17.210 Nicotine dependence, cigarettes, uncomplicated | CPT/HCPCS: 11042 ==

== ENCOUNTER 2021-03-01 14:33 | Outpatient (CLI) | payer MEDICARE, MEDICAID, SELFPAY | END 2021-03-01 14:34 | disposition home or self-care (01) | LOC: WOUND 14:34 | PROVIDERS: PCP Nurse Practitioner Family; Visit Provider Nurse Practitioner Family | DX: L97.522 Non-pressure chronic ulcer of other part of left foot with fat layer exposed (principal); F17.210 Nicotine dependence, cigarettes, uncomplicated | CPT/HCPCS: 11042 ==

== ENCOUNTER 2021-03-14 12:59 | Outpatient (CLI) | payer MEDICARE, MEDICAID, SELFPAY | END 2021-03-14 13:00 | disposition home or self-care (01) | LOC: WOUND 13:01 | PROVIDERS: PCP Nurse Practitioner Family; Visit Provider Thoracic Surgery (Cardiothoracic Vascular Surgery) | DX: L97.522 Non-pressure chronic ulcer of other part of left foot with fat layer exposed (principal); F17.210 Nicotine dependence, cigarettes, uncomplicated | CPT/HCPCS: 97597 ==

== ENCOUNTER 2021-03-21 13:03 | Outpatient (CLI) | payer MEDICARE, MEDICAID, SELFPAY | END 2021-03-21 13:04 | disposition home or self-care (01) | LOC: WOUND 13:04 | PROVIDERS: PCP Nurse Practitioner Family; Visit Provider Thoracic Surgery (Cardiothoracic Vascular Surgery) | DX: L97.522 Non-pressure chronic ulcer of other part of left foot with fat layer exposed (principal); S90.412A Abrasion, left great toe, initial encounter; X58.XXXA Exposure to other specified factors, initial encounter; F17.210 Nicotine dependence, cigarettes, uncomplicated | CPT/HCPCS: 97597; A6021 ==

== ENCOUNTER 2021-03-28 12:21 | Outpatient (CLI) | payer MEDICARE, MEDICAID, SELFPAY ==
--- NOTE | 2021-03-28 12:29 | XR_ITS ---
WS: [id number] Exam: XR foot LT 2V [id number] Date/Time of Exam: 03/28/2021 12:33 PM Reason For Exam: NON PRESSURE CHRONICULA No acute fracture. There appears to be resorption or surgical absence of the distal phalanx of the se cond toe. Third and fourth hammertoe deformities noted. Small metallic foreign body in the great toe resembling that of a wire fragment or broken needle. Degenerative changes in the midfoot joints. Pes planus. XR/XR foot LT 2V [id number] IMPRESSION: 1. No acute fracture or bone destruction. 2. Absence of the distal phalanx of the second toe as noted above. Third and fo urth hammertoe deformities. 3. Metallic foreign body in the great toe resembling that of a wire fragment or broken needle.
== END 2021-03-28 12:22 | disposition home or self-care (01) ==
LOC: RAD 12:26
PROVIDERS: PCP Nurse Practitioner Family; Visit Provider Thoracic Surgery (Cardiothoracic Vascular Surgery)
DX: L97.522 Non-pressure chronic ulcer of other part of left foot with fat layer exposed (principal); Z89.422 Acquired absence of other left toe(s)
CPT/HCPCS: 73620

== ENCOUNTER 2021-03-28 13:44 | Outpatient (CLI) | payer MEDICARE, MEDICAID, SELFPAY | END 2021-03-28 13:45 | disposition home or self-care (01) | LOC: WOUND 13:45 | PROVIDERS: PCP Nurse Practitioner Family; Visit Provider Nurse Practitioner Family | DX: L97.522 Non-pressure chronic ulcer of other part of left foot with fat layer exposed (principal); F17.210 Nicotine dependence, cigarettes, uncomplicated; Z89.422 Acquired absence of other left toe(s) | CPT/HCPCS: 11042; 73620; A6021 ==

== ENCOUNTER 2021-04-18 13:10 | Outpatient (CLI) | payer MEDICARE, MEDICAID, SELFPAY | END 2021-04-18 13:11 | disposition home or self-care (01) | LOC: WOUND 13:14 | PROVIDERS: PCP Nurse Practitioner Family; Visit Provider Thoracic Surgery (Cardiothoracic Vascular Surgery) | DX: L97.522 Non-pressure chronic ulcer of other part of left foot with fat layer exposed (principal); S90.412A Abrasion, left great toe, initial encounter; X58.XXXA Exposure to other specified factors, initial encounter; F17.210 Nicotine dependence, cigarettes, uncomplicated | CPT/HCPCS: 99212; A6021 ==

== ENCOUNTER 2021-05-09 13:03 | Outpatient (CLI) | payer MEDICARE, MEDICAID, SELFPAY | END 2021-05-09 13:04 | disposition home or self-care (01) | LOC: WOUND 13:05 | PROVIDERS: PCP Nurse Practitioner Family; Visit Provider Thoracic Surgery (Cardiothoracic Vascular Surgery) | DX: F17.210 Nicotine dependence, cigarettes, uncomplicated (principal); L98.492 Non-pressure chronic ulcer of skin of other sites with fat layer exposed; L98.496 Non-pressure chronic ulcer of skin of other sites with bone involvement without evidence of necrosis | CPT/HCPCS: 97597 ==

== ENCOUNTER 2021-05-23 13:02 | Outpatient (CLI) | payer MEDICARE, MEDICAID, SELFPAY | END 2021-05-23 13:03 | disposition home or self-care (01) | LOC: WOUND 13:03 | PROVIDERS: PCP Nurse Practitioner Family; Visit Provider Thoracic Surgery (Cardiothoracic Vascular Surgery) | DX: L97.522 Non-pressure chronic ulcer of other part of left foot with fat layer exposed (principal) | CPT/HCPCS: 97597; A6021 ==

== ENCOUNTER → 2021-06-13 13:13 | Outpatient (BNVA) | payer MEDICARE, MEDICAID, SELFPAY | PROVIDERS: PCP Nurse Practitioner Family; Visit Provider Thoracic Surgery (Cardiothoracic Vascular Surgery) | DX: I96 Gangrene, not elsewhere classified (principal); L97.522 Non-pressure chronic ulcer of other part of left foot with fat layer exposed; F17.210 Nicotine dependence, cigarettes, uncomplicated | CPT/HCPCS: 97597; A6021 ==

== ENCOUNTER → 2021-06-21 13:42 | Outpatient (BNVA) | payer MEDICARE, MEDICAID, SELFPAY | PROVIDERS: PCP Nurse Practitioner Family; Visit Provider Emergency Medicine | DX: I96 Gangrene, not elsewhere classified (principal); L97.522 Non-pressure chronic ulcer of other part of left foot with fat layer exposed; F17.210 Nicotine dependence, cigarettes, uncomplicated | CPT/HCPCS: 11042; 99212; A6021 ==

== ENCOUNTER → 2021-06-27 15:07 | Outpatient (BNVA) | payer MEDICARE, MEDICAID, SELFPAY | PROVIDERS: PCP Nurse Practitioner Family; Visit Provider Thoracic Surgery (Cardiothoracic Vascular Surgery) | DX: Z09 Encounter for follow-up examination after completed treatment for conditions other than malignant neoplasm (principal) | CPT/HCPCS: 99212; A6021 ==

== ENCOUNTER → 2021-07-11 10:31 | Outpatient (BNVA) | payer MEDICARE, MEDICAID, SELFPAY | PROVIDERS: PCP Nurse Practitioner Family; Referring Provider Thoracic Surgery (Cardiothoracic Vascular Surgery); Visit Provider Podiatrist Foot & Ankle Surgery | DX: M20.32 Hallux varus (acquired), left foot (principal); M20.42 Other hammer toe(s) (acquired), left foot; L97.521 Non-pressure chronic ulcer of other part of left foot limited to breakdown of skin; F17.210 Nicotine dependence, cigarettes, uncomplicated | CPT/HCPCS: 73630; 99204; 99205 ==

== ENCOUNTER 2022-02-13 14:11 | Outpatient (CLI) | payer MEDICARE, MEDICAID, SELFPAY | END 2022-02-13 14:12 | disposition home or self-care (01) | PROVIDERS: PCP Nurse Practitioner Family; Visit Provider Nurse Practitioner Family | DX: K62.5 Hemorrhage of anus and rectum (principal); R04.2 Hemoptysis; R31.9 Hematuria, unspecified; E78.5 Hyperlipidemia, unspecified; I10 Essential (primary) hypertension; R26.81 Unsteadiness on feet; R11.0 Nausea; R53.1 Weakness; Z99.3 Dependence on wheelchair; R05.9 Cough, unspecified; R10.9 Unspecified abdominal pain | CPT/HCPCS: 80053; 80061; 84443; 85025 ==

== ENCOUNTER 2022-02-14 01:00 | Outpatient (CLI) | payer MEDICARE, MEDICAID, SELFPAY | END 2022-02-14 23:00 | disposition home or self-care (01) | LOC: RAD 03-02 20:43 | PROVIDERS: PCP Nurse Practitioner Family; Visit Provider Nurse Practitioner Family | DX: R31.9 Hematuria, unspecified (principal); K62.5 Hemorrhage of anus and rectum; R04.2 Hemoptysis; Z53.9 Procedure and treatment not carried out, unspecified reason | CPT/HCPCS: 74177; 81000; 82274; 87077; 87086; 87184 ==

== ENCOUNTER 2022-02-14 12:36 | Emergency (ER) | payer MEDICARE, MEDICAID, SELFPAY ==
[2022-02-14 12:42] VITALS: BP 152/94; PULSE 76; RESP 16; TEMP 37.1; O2SAT 99
--- NOTE | 2022-02-14 12:48 | W.ED.ABDPA2 ---
HPI - Abdominal Pain General: Chief Complaint: Abdominal Pain Stated Complaint: Kidney, belly pain, and back pain. Time Seen by Provider: 02/14/22 12:47 History of Present Illness: Mr. Alvarez is a 61-year-old gentleman with significant past medical history of hypertension, hyperlipidemia, history of TIA, tobaccoism, daily alcohol consumption, Alvarez's esophagus presenting to the emergency department due to abdominal pain and concern for GI bleed. He reports first noticing some abdominal pain with blood in urine few months ago. He also has had cough with hemoptysis. Pain is essentially persisted and he also noticed recently blood in his stool. Pain is sharp and stabbing in nature. Worse with lying down. Does have some radiation up into the chest. Intensity is moderate to severe. Course has worsened. No other specific changes in health, exacerbating, or alleviating factors identified. Patient has not been taking his medications for some period of time. Onset (ago): month(s) Pain Consistency: constant Location: Epigastric, LUQ and RUQ Severity: severe Quality: stabbing and aching Exacerbating factors: vomiting, movement and other Relieving factors: nothing Associated Symptoms: Reports change in stool character, hematochezia, hematuria, nausea, poor appetite, vomiting and other Review of Systems General: Reports: 10 or more systems reviewed and unremarkable except in HPI and below GI: Reports: nausea, vomiting, change in stool character, hematochezia and other : Reports: hematuria PFSH ED PFSH: Medical History Amputation of right great toe Cervical disc disorder with myelopathy, mid-cervical region, unspecified level Chronic back pain Cyst of right kidney DDD (degenerative disc disease) Diverticulosis DJD (degenerative joint disease) Dyslipidemia Essential (primary) hypertension Fatty liver FH: CVA (cerebrovascular accident) History of TIA (transient ischemic attack) Surgical History History of discectomy History of laminectomy History of lumbar laminectomy for spinal cord decompression Family History Other Cancer Denies family history of Bleeding disorder Social History Smoking and tobacco status: current every day smoker Second hand smoke exposure: Yes Smoking risk assessment/counseling performed?: Yes Alcohol intake: current Desire information about alcohol rehabilitation?: No Counseling given: No Desire information about substance/drug rehabilitation?: No Counseling given: No Adopted: No Caregiver/support person: No Lives independently: Yes Household members: children Marital status: Number of children: 2 service: No Current occupational status: disabled History of recent travel: No Current gender identity: Male Physical Exam Const: COMMON NORMALS: alert GENERAL APPEARANCE: cooperative, well developed and ill appearing (Somewhat) HENMT: COMMON NORMALS: normocephalic and atraumatic HEAD & SCALP: normocephalic and atraumatic THROAT: posterior oropharynx normal Eye: COMMON NORMALS: conjunctivae normal CONJUNCTIVA: Yes conjunctivae normal SCLERA: sclerae normal Neck/C-Spine: COMMON NORMALS: supple GENERAL: Yes trachea midline Resp: COMMON NORMALS: clear to auscultation bilaterally EFFORT & INSPECTION: Yes able to speak in complete sentences AUSCULTATION: clear to auscultation bilaterally Cardio: COMMON NORMALS: regular rate and regular rhythm RATE: regular rate RHYTHM: regular rhythm GI: COMMON NORMALS: Soft to palpation PALPATION: Yes Soft to palpation, Yes Tenderness to palpation present (GI), Yes Guarding due to palpation present (GI) and No Rigid due to palpation Extremity: GENERAL: Yes normal exam except as noted and No edema Neuro: COMMON NORMALS: moves all extremities SENSORIUM/ORIENTATION: Yes alert and No Orientation impaired Psych: COMMON NORMALS: mental status grossly normal and Normal thought process present THOUGHT PROCESS: Normal thought process present Course Vital Signs: Vital signs: Vital Signs Temperature 98.7 F 02/14/22 17:32 Pulse Rate 85 02/14/22 17:32 Respiratory Rate 16 02/14/22 17:32 Blood Pressure 149/62 02/14/22 17:32 Pulse Oximetry 96 02/14/22 17:32 MDM - Abdominal Pain Medical Decision Making 61-year-old gentleman presenting with abdominal symptoms and generalized illness. Exam as above. EKG shows sinus rhythm, no STEMI. Labs with minimal leukocytosis, normal hemoglobin, mild thrombocytosis again noted. Metabolic panel without significant electrolyte derangement. 2-hour delta troponin is negative. Lipase is mildly elevated. There is evidence of urinary tract infection. CT imaging demonstrates no acute pathology to explain symptoms in the chest, abdomen, pelvis. Incidental findings were discussed with the patient. Patient treated with pantoprazole, antiemetic, Rocephin, morphine with some improvement. Most likely etiology of patient's symptoms is multifactorial including UTI and COPD exacerbation as well as GI bleed. Given vital signs as well as laboratory findings and clinical history provided patient can adequately be treated in the outpatient setting and referred for further evaluation with possible endoscopy. The results of ED evaluation were discussed with the patient including prescriptions and/or symptomatic cares (if applicable) including appropriate and responsible use, followup plan, and return precautions. The patient verbalized understanding and felt safe for discharge. Medical Records I reviewed the patient's medical records. Lab Data I reviewed the patient's lab results. 02/14/22 13:22 02/14/22 13:22 Labs/Radiology: Radiology Impressions Chest/Abdomen/Pelvis CTA 02/14/22 14:19 IMPRESSION: No acute abdominal or pelvic abnormality. COMMENTS: Consistent with the [employer]'s Incidental Findings Committee white paper (J Am Jermaine Radiol 2018): Any incidental renal lesion less than 1 cm or classified as too small to characterize, or any incidental cystic renal lesion characterized as simple-appearing, is likely benign. No follow-up imaging is recommended for these lesions per consensus recommendations based on imaging criteria. Laboratory Results WBC 10.4 10^3/uL (4.0-10.0) H 02/14/22 13:22 RBC 5.16 10^6/uL (4.1-5.3) 02/14/22 13:22 Hgb 16.2 g/dL (11.7-16.6) 02/14/22 13:22 Hct 48.2 % (42.0-52.0) 02/14/22 13:22 MCV 93.4 fl (80-94) 02/14/22 13:22 MCH 31.4 pg (28.0-34.0) 02/14/22 13:22 MCHC 33.6 g/dL (30.0-36.0) 02/14/22 13:22 RDW 14.3 % (12.1-15.1) 02/14/22 13:22 Plt Count 466 10^3/cmm (130-400) H 02/14/22 13:22 MPV 10.3 fL (7.4-10.4) 02/14/22 13:22 Neut % (Auto) 75.2 % 02/14/22 13:22 Lymph % (Auto) 7.5 % 02/14/22 13:22 [place] % (Auto) 12.2 % 02/14/22 13:22 Eos % (Auto) 2.7 % 02/14/22 13:22 Baso % (Auto) 1.7 % 02/14/22 13:22 Neut # (Auto) 7.78 10^3/uL (1.8-7.7) H 02/14/22 13:22 Lymph # (Auto) 0.8 10^3/uL (0.8-4.8) 02/14/22 13:22 [place] # (Auto) 1.3 10^3/uL (0.2-0.9) H 02/14/22 13:22 Eos # (Auto) 0.3 10^3/uL (0.0-0.8) 02/14/22 13:22 Baso # (Auto) 0.2 10^3/uL (0.0-0.1) H 02/14/22 13:22 Nucleated RBC % (auto) 0 % 02/14/22 13:22 Nucleated RBCs # 0.0 /100WBC 02/14/22 13:22 Sodium 136 mmol/L (136-145) 02/14/22 13:22 Potassium 3.6 mmol/L (3.5-5.1) 02/14/22 13:22 Chloride 98 mmol/L (98-107) 02/14/22 13:22 Carbon Dioxide 23 mmol/L (22-29) 02/14/22 13:22 Anion Gap 18.6 (5-19) 02/14/22 13:22 BUN 15 mg/dL (6-20) 02/14/22 13:22 Creatinine 0.6 mg/dL (0.7-1.2) L 02/14/22 13:22 GFR Calculation 137.9 mL/min (90-130) H 02/14/22 13:22 Glucose 76 mg/dL (65-115) 02/14/22 13:22 Calculated Osmolality 282 mOsm/kg (285-295) L 02/14/22 13:22 Lactate 1.8 mmol/L (0.5-2.2) 02/14/22 13:22 Calcium 10.1 mg/dL (8.5-10.5) 02/14/22 13:22 Total Bilirubin 0.5 mg/dL (0.15-1.2) 02/14/22 13:22 AST 51 U/L (0-40) H 02/14/22 13:22 ALT 39 U/L (0-41) 02/14/22 13:22 Alkaline Phosphatase 119 U/L (40-130) 02/14/22 13:22 Troponin T Baseline 59 ng/L (0-15) H 02/14/22 13:22 Troponin T 120 Minute 54.37 ng/L (0-15) H 02/14/22 15:28 Delta Troponin T -4.63 ABS# (0-10) L 02/14/22 15:28 Total Protein 8.4 g/dL (6.6-8.7) 02/14/22 13:22 Albumin 4.3 g/dL (3.5-5.2) 02/14/22 13:22 Globulin 4.1 g/dL (1.3-4.6) 02/14/22 13:22 Lipase 79 U/L (13-60) H 02/14/22 13:22 Urine Color Yellow (Yellow) 02/14/22 15: Urine Appearance Clear (CLEAR) 02/14/22 15:22 Urine pH 8 (5-7) H 02/14/22 15:22 Ur Specific [place] 1.010 (1.005-1.030) 02/14/22 15:22 Urine Protein Neg (Negative) 02/14/22 15:22 Urine Glucose (UA) Norm (Normal) 02/14/22 15:22 Urine Ketones 1+ (Negative) H 02/14/22 15:22 Urine Blood Neg (Negative) 02/14/22 15: Urine Nitrate Negative (Negative) 02/14/22 15: Urine Bilirubin Neg (Negative) 02/14/22 15:22 Prot Sulfosalicylic Acd Negative (Negative) 02/14/22 15:22 Urine Urobilinogen 4 mg/dL (Negative) H 02/14/22 15:22 Ur Leukocyte Esterase Trace (Negative) H 02/14/22 15:22 Urine RBC 0-4 /hpf (0-2) H 02/14/22 15:22 Urine WBC 5-10 /hpf (0-5) H 02/14/22 15:22 Ur Squamous Epith Cells None /hpf (0-5) 02/14/22 15:22 Amorphous Sediment Not Reportable 02/14/22 15:22 Urine Bacteria 4+ /hpf (NONE) H 02/14/22 15:22 Blood Type B Negative 02/14/22 14:54 Rho(D) Type Negative 02/14/22 14:54 Antibody Screen Negative 02/14/22 14:54 Discharge Plan Discharge Patient Disposition: Left Against Medical Advice Clinical Impression: Abdominal pain, COPD (chronic obstructive pulmonary disease), Acute UTI, GI bleed Condition: Stable Prescriptions: New Protonix 40 mg tablet,delayed release (DR/EC) 40 mg PO BID 14 Days Qty: 28 0RF oxycodone 5 mg tablet 5 mg PO Q4H PRN (Reason: pain) Qty: 10 0RF ondansetron 4 mg tablet,disintegrating 4 mg PO Q8H PRN (Reason: nausea and vomiting) Qty: 15 0RF ciprofloxacin HCl 500 mg tablet 500 mg PO BID Qty: 20 0RF No Action (DME) mobility power wheelchair See Rx Instructions .Route .MEDSUPPLY Qty: 1 0RF Rx Instructions: 99 months (DME) WHEELCHAIR K0001 See Rx Instructions .Route .MEDSUPPLY Qty: 1 0RF Rx Instructions: As directed atorvastatin 20 mg tablet 20 mg PO DAILY 30 Days Qty: 30 5RF clopidogrel 75 mg tablet 75 mg PO DAILY 30 Days Qty: 30 5RF lisinopril 40 mg tablet 40 mg PO DAILY 30 Days Qty: 30 5RF ondansetron 8 mg tablet,disintegrating 8 mg PO Q8H PRN (Reason: nausea and vomiting) Qty: 9 0RF naproxen 500 mg Tablet 1,000 mg PO DAILY PRN (Reason: Pain) Discharge Orders: Discharge ED (Routine); Ordered 02/14/22 Ordered By: Eligio Enriquez Referrals: Sarah Godoy FNP-C [Primary Care Provider] - Discharge Diet: Advance as tolerated and Clear Liquid Discharge Activity: Increase activity as tolerated Activity Restrictions/Additional Instructions: Thank you for visiting the emergency department. You were seen and evaluated for abdominal pain associated with blood in cough, blood in stool, and blood in urine. The exact cause of your symptoms is likely multifactorial. You likely have a component of gastritis and also a urinary tract infection. You also likely a flareup of underlying lung disease. Please avoid NSAIDs. I will prescribe steroids and antibiotics. Please also use your albuterol metered-dose inhaler 2 puffs every 4 hours for 24 hours followed by 2 puffs every 6 hours for 24 hours followed by 2 puffs every 8 hours for 24 hours and then return to the normal schedule. I will message case management for referral for endoscopy. Please follow-up with your primary care provider. Return to the emergency department for worsening symptoms or anything else that you are concerned about a feel needs emergency department evaluation. Coding Level of Care Code ED Quality Improvement Coordinator (Rn) for Darshana Fwd Exam Comprehensive
[2022-02-14 13:02] VITALS: BP 149/93; PULSE 74; RESP 18
--- NOTE | 2022-02-14 13:02 | PC.PHAR ---
pt states he hasnt taken his atorvastatin 20mg daily,plavix 75mg daily, or lisinopril 40mg daily for a month-ext med history shows meds last filled 01/05/22 30d/s-
[2022-02-14] MEDS: pantoprazole 40 mg SDV 80 MG IVP (13:28)
[2022-02-14 13:29] VITALS: RESP 18
[2022-02-14] MEDS: morphine 4 mg/mL SDV 1 mL IVP (13:29)
[2022-02-14] MEDS: ondansetron 2 mg/ML SDV 2 mL 4 MG IVP (13:29)
[2022-02-14 13:34] LABS: Basophils # 0.2 10^3/uL (0.0-0.1); Basophils % 1.7 %; Eosinophils # 0.3 10^3/uL (0.0-0.8); Eosinophils % 2.7 %; Hematocrit 48.2 % (42.0-52.0); Hemoglobin 16.2 g/dL (11.7-16.6); Lymphocytes # 0.8 10^3/uL (0.8-4.8); Lymphocytes % 7.5 %; Mean Corpuscular HGB Conc 33.6 g/dL (30.0-36.0); Mean Corpuscular Hemoglobin 31.4 pg (28.0-34.0); Mean Corpuscular Volume 93.4 fl (80-94); Mean Platelet Volume 10.3 fL (7.4-10.4); Monocytes # 1.3 10^3/uL (0.2-0.9); Monocytes % 12.2 %; Neutrophils # 7.78 10^3/uL (1.8-7.7); Neutrophils % 75.2 %; Nucleated Red Blood Cells % 0 %; Platelet Count 466 10^3/cmm (130-400); Red Blood Count 5.16 10^6/uL (4.1-5.3); Red Cell Distribution Width 14.3 % (12.1-15.1); White Blood Count 10.4 10^3/uL (4.0-10.0)
[2022-02-14 13:52] LABS: Alanine Aminotransferase 39 U/L (0-41); Albumin Level 4.3 g/dL (3.5-5.2); Alkaline Phosphatase 119 U/L (40-130); Anion Gap 18.6 (5-19); Aspartate Amino Transferase 51 U/L (0-40); Blood Urea Nitrogen 15 mg/dL (6-20); Calcium 10.1 mg/dL (8.5-10.5); Carbon Dioxide 23 mmol/L (22-29); Chloride 98 mmol/L (98-107); Globulin 4.1 g/dL (1.3-4.6); Glomerular Filtration Rate 137.9 mL/min (90-130); Glucose 76 mg/dL (65-115); Lactate (Lactic Acid level) 1.8 mmol/L (0.5-2.2); Lipase 79 U/L (13-60); Osmolality Calculated 282 mOsm/kg (285-295); Potassium 3.6 mmol/L (3.5-5.1); Sodium 136 mmol/L (136-145); Total Bilirubin 0.5 mg/dL (0.15-1.2); Total Protein 8.4 g/dL (6.6-8.7)
--- NOTE | 2022-02-14 14:19 | CTR_ITS ---
PROCEDURE INFORMATION: Exam: CTA Chest With Contrast CTA Abdomen and Pelvis With Contrast Exam date and time: 02/14/2022 2:39 PM Age: 61 years old Clinical indication: Other: Hemorrhage of anus and rectum; Prior surgery; Surgery type: Spine x 5; Patient HX: RT sided chest and abd pain. RT sided back pain. Blood in stool, coughing up blood, and hematuria. ; Additional info: K62.5 - hemorrhage of anus and rectum TECHNIQUE: Imaging protocol: Computed tomographic angiography of the chest with contrast. Computed tomographic angiography of the abdomen and pelvis with contrast. 3D rendering (Not supervised by radiologist): MIP and/or 3D reconstructed images were created by the technologist. Radiation optimization: All CT scans at this facility use at least one of these dose optimization techniques: automated exposure control; mA and/or kV adjustment per patient size (includes targeted exams where dose is matched to clinical indication); or iterative reconstruction. Contrast material: OMNI 350; Contrast volume: 100 ml; Contrast route: INTRAVENOUS (IV); COMPARISON: CT angio chest w abd pel w con 09/13/2017 9:27 PM RADIATION DOSE METRICS: Total DLP (mGy-cm): 1249.87 FINDINGS: VASCULATURE: Pulmonary arteries: Normal. No pulmonary emboli. Aorta: No aortic aneurysm. No aortic dissection. Celiac trunk and mesenteric arteries: No occlusion or significant stenosis. Renal arteries: No occlusion or significant stenosis. Right iliac arteries: No occlusion or significant stenosis. Left iliac arteries: No occlusion or significant stenosis. CHEST: Lungs: Emphysematous changes. Mild atelectasis at the right lung base. Pleural spaces: Unremarkable. No pneumothorax. No pleural effusion. Heart: Unremarkable. No cardiomegaly. No pericardial effusion. Coronary arteries: Coronary vasculature calcifications. ABDOMEN AND PELVIS: Liver: Atherosclerotic calcification of the bilateral iliac arteries. Fatty infiltration of the liver. Gallbladder and bile ducts: Unremarkable. No calcified stones. No ductal dilation. Pancreas: Unremarkable. No mass. No ductal dilation. Spleen: Calcified granuloma in the spleen. Adrenal glands: Unremarkable. No mass. Kidneys and ureters: 2 cm cyst in the midpole of the right kidney. Stomach and bowel: Diverticulosis of the sigmoid colon. Appendix: No evidence of appendicitis. Intraperitoneal space: Unremarkable. No free air. No significant fluid collection. Urinary bladder: Urinary bladder wall thickening. Reproductive: Unremarkable as visualized. Lymph nodes: Unremarkable. No enlarged lymph nodes. Bones/joints: Degenerative changes of the spine. Anterolisthesis of T4 over T5. Soft tissues: Unremarkable. CT/CT angio chest abdomen pelvis IMPRESSION: No acute abdominal or pelvic abnormality. COMMENTS: Consistent with the [employer]'s Incidental Findings Committee white paper (J Am Jermaine Radiol 2018): Any incidental renal lesion less than 1 cm or classified as too small to characterize, or any incidental cystic renal lesion characterized as simple-appearing, is likely benign. No follow-up imaging is recommended for these lesions per consensus recommendations based on imaging criteria.
--- NOTE | 2022-02-14 14:20 | ECG_ITS ---
[facility] Test Date: 2022-02-14 Pat Name: Rex Alvarez Department: Room: Gender: Male Package Drier: : 1960 Requested By: Eligio Enriquez Order Number: [id number] Julianne MD: Mojgan Hernandez M.D. Measurements Intervals [place] Rate: 72 P: 69 FL: 205 QRS: 55 QRSD: 92 T: 67 QT: 401 QTc: 441 Interpretive Statements SINUS RHYTHM ANTEROSEPTAL MYOCARDIAL INFARCTION , OF INDETERMINATE AGE [40+ ms Q WAVE IN V1-V4] Compared to ECG 01/29/2019 14:57:34 No significant changes Electronically Signed On 02-14-2022 18:49:14 [employer]INT FACTORY WORKER by Mojgan Hernandez M.D. [email or web address]
[2022-02-14 14:39] LABS: Troponin(5th) Baseline 59 ng/L (0-15)
[2022-02-14] MEDS: iohexol 350 mg/mL 500 mL Btl (per mL) IV (14:54)
[2022-02-14 15:38] VITALS: BP 141/72; PULSE 85; RESP 16; O2SAT 96
[2022-02-14 16:04] LABS: Troponin 5 2HR 54.37 ng/L (0-15)
[2022-02-14 16:11] LABS: Troponin 5 2HR Delta -4.63 ABS# (0-10)
[2022-02-14 16:31] VITALS: BP 149/62
[2022-02-14 16:50] LABS: Bilirubin Urine Neg (Negative); Blood Urine Neg (Negative); Glucose Urine UA Norm (Normal); Ketones Urine 1+ (Negative); Nitrate Urine Negative (Negative); Protein Urine Neg (Negative); Sulfosalicylic Acid Urine Negative (Negative); Urine Appearance Clear (CLEAR); Urine Color Yellow (Yellow); pH Urine 8 (5-7)
[2022-02-14 16:51] LABS: Add Urine Culture? Yes; Add Urine Microscopic? YES; Bacteria Urine 4+ /hpf; Leukocyte Esterase Urine Trace (Negative); RBC Urine 0-4 /hpf (0-2); Urobilinogen Urine 4 mg/dL (Negative)
[2022-02-14] MEDS: cefTRIAXone 1,000 MG in sodium chloride 0.9% (plus) 50 ML 100 MG IV (17:10)
--- NOTE | 2022-02-14 17:31 | PC.NURSE ---
Pt was angry when told by the doctor that he had a UTI, she stated there was more then that wrong with him and that he wanted to leave AMA, Dr. correa was told of this and AMA form signed
[2022-02-14 17:32] VITALS: BP 149/62; PULSE 85; RESP 16; TEMP 37.1; O2SAT 96
== END 2022-02-14 17:32 | disposition left against medical advice (07) ==
PROVIDERS: Emergency Provider Emergency Medicine; PCP Nurse Practitioner Family
DX: N39.0 Urinary tract infection, site not specified (principal); K92.2 Gastrointestinal hemorrhage, unspecified; J44.9 Chronic obstructive pulmonary disease, unspecified; Z79.02 Long term (current) use of antithrombotics/antiplatelets; Z53.21 Procedure and treatment not carried out due to patient leaving prior to being seen by health care provider; E78.5 Hyperlipidemia, unspecified; I10 Essential (primary) hypertension; Z86.73 Personal history of transient ischemic attack (TIA), and cerebral infarction without residual deficits; F17.210 Nicotine dependence, cigarettes, uncomplicated
CPT/HCPCS: 36415; 71275; 74174; 80053; 81001; 83605; 83690; 84484; 85025; 86850; 86900; 87077; 87086; 87186; 93005; 96365; 96375; 99285; C9113; J0696; J2270; J2405; Q9967

== ENCOUNTER 2022-03-29 19:13 | Emergency (ER) | payer MEDICARE, MEDICAID, SELFPAY ==
[2022-03-29 19:46] VITALS: BP 122/74; PULSE 100; RESP 16; TEMP 36.8; O2SAT 96
--- NOTE | 2022-03-29 19:46 | XRR_ITS ---
PROCEDURE INFORMATION: Exam: XR Left Hip Exam date and time: 03/29/2022 8:06 PM Age: 61 years old Clinical indication: Injury or trauma; Fall; Blunt trauma (contusions or hematomas); Left; Hip TECHNIQUE: Imaging protocol: Radiologic exam of the Left hip. Views: 2 or 3 views hip with pelvis when performed. COMPARISON: CT abdomen pelvis w con* [id number] 08/21/2021 14:39 FINDINGS: Bones/joints: Moderate left hip DJD. Subtle left hip impacted fracture conceivable. No definite or obvious fracture. Soft tissues: Unremarkable. XR/XR hip LT 2-3V wo/w pel* [id number] IMPRESSION: While there is no definite or displaced left hip fracture noted, there is an equivocal left hip subcapital impacted fracture. If patient cannot bear weight, recommend CT pelvis.
--- NOTE | 2022-03-29 19:48 | ED_ITS ---
HPI - Trauma General: Chief Complaint: Trauma Stated Complaint: possible hip fracture Time Seen by Provider: 03/29/22 19:38 Source: patient and EMS Mode of arrival: EMS Limitations: no limitations History of Present Illness: This gentleman was transported by EMS from his home. He apparently slipped last night while transferring from his bed to his chair and fell landing on his left hip. He landed on his left shoulder however is not having any left shoulder pain at this time. He did not hit his head or suffer loss of consciousness. He states he has chronic back pain has had multiple back surgeries and has chronic lower extremity weakness and that is why he tends to use a wheelchair. States his left hip continues to hurt and he cannot move it without pain today. He states that he has drank a couple beers today. He states he is eaten some food this morning. He denies any nausea vomiting or diarrhea. He denies chest pain palpitations etc. He denies fevers or chills. MD complaint: fall and injury Loss of Consciousness: no Location - Extremities: Left: hip Associated symptoms: Reports back pain; Denies chest pain, chills, fever(s), headache(s), nausea, syncope or vomiting Review of Systems Const: Denies: fever(s) or chills Card: Denies: chest pain, palpitations, syncope or pre-syncope Resp: Denies: dyspnea, productive cough or non-productive cough GI: Denies: nausea, vomiting or diarrhea : Denies: flank pain, difficulty urinating or dysuria Musc: Reports: back pain and extremity pain; Denies: neck pain Skin/Breast: Denies: rash Neuro: Denies: headache(s) [facility] PFSH: Medical History Amputation of right great toe Cervical disc disorder with myelopathy, mid-cervical region, unspecified level Chronic back pain Cyst of right kidney DDD (degenerative disc disease) Diverticulosis DJD (degenerative joint disease) Dyslipidemia Essential (primary) hypertension Fatty liver FH: CVA (cerebrovascular accident) History of TIA (transient ischemic attack) Surgical History History of discectomy History of laminectomy History of lumbar laminectomy for spinal cord decompression Family History Other Cancer Denies family history of Bleeding disorder Social History Smoking and tobacco status: current every day smoker Second hand smoke exposure: Yes Smoking risk assessment/counseling performed?: Yes Alcohol intake: current Desire information about alcohol rehabilitation?: No Counseling given: No Desire information about substance/drug rehabilitation?: No Counseling given: No Adopted: No Caregiver/support person: No Lives independently: Yes Household members: children Marital status: Number of children: 2 service: No Current occupational status: disabled History of recent travel: No Current gender identity: Male Physical Exam Narrative: EXAM NARRATIVE: Patient is alert. He makes good eye contact. Speech is goal-directed. Const: COMMON NORMALS: no acute distress, average body habitus, patient oriented x3 and alert GENERAL APPEARANCE: cooperative and disheveled HENMT: COMMON NORMALS: normocephalic, atraumatic, moist oral mucous membranes and oropharynx normal HEAD & SCALP: normocephalic and atraumatic FACE & SINUS: normal facial exam Eye: COMMON NORMALS: Equal, round and reactive pupils present, EOMs intact bilaterally and conjunctivae normal CONJUNCTIVA: Yes conjunctivae normal PUPIL: Yes Equal, round and reactive pupils present Neck/C-Spine: COMMON NORMALS: full ROM and supple CERVICAL SPINE: Yes cervical ROM normal, No Cervical spine tenderness, No step off deformity and No Paracervical muscle tenderness Chest: COMMONS NORMALS: normal inspection of the chest and normal palpation of entire chest wall Resp: COMMON NORMALS: normal respiratory effort, No retractions and clear to auscultation bilaterally AUSCULTATION: clear to auscultation bilaterally Cardio: COMMON NORMALS: regular rate, regular rhythm, No murmurs present (Cardio) and Peripheral pulses 2+ throughout RATE: regular rate RHYTHM: regular rhythm PERIPHERAL PULSES: Peripheral pulses 2+ throughout GI: COMMON NORMALS: Normal to inspection, nondistended, normoactive bowel sounds present : COMMON NORMALS: Yes no CVA tenderness BLADDER/KIDNEY EXAM: Yes no CVA tenderness Back/Pelvis: COMMON NORMALS: no CVA tenderness, thoracic and lumbar spine normal to inspection, no thoracic nor lumbar tenderness and thoraco-lumbar ROM normal PELVIS: Yes no pain with anterior-posterior compression and Yes no pain with lateral compression Extremity: COMMON NORMALS: capillary refill normal, no calf tenderness and no pedal edema LEFT LOWER EXTREMITY: Yes hip joint Neuro: COMMON NORMALS: patient oriented x3 and no focal motor deficits SENSORIUM/ORIENTATION: Yes alert Course Reevaluation(s): Reevaluation #1: Patient remained stable and unchanged. Patient's spouse is now present and relates that she has been frustrated because [place]. I discussed the lack of indication for operative repair or other acute intervention of this type of injury. I will place a consult into case management and see if they can provide additional assistance. Time: 22:59 Consultations: Consultation #1: Discussed with Dr. Nuñez consulting orthopedist on-call. Usual course of therapy for this type of nondisplaced fracture is allowed to heal without any need for ORIF or other operative intervention. Time: 22:08 Vital Signs: Vital signs: Vital Signs Temperature 98.2 F 03/29/22 19:46 Pulse Rate 101 H 03/29/22 20:19 Respiratory Rate 16 03/29/22 20:02 Blood Pressure 95/68 03/29/22 20:19 Pulse Oximetry 98 03/29/22 20:19 Oxygen Delivery Me thod 03/29/22 20:19 MDM - Trauma Medical Decision Making This patient made his way via EMS to our emergency department because of a fall and a hip injury. He has history of chronic low back pain and has had some limited mobility because of his chronic back pain. He apparently was transferring from chair to bed and had a slip and fall striking his left hip. Occurred approximately 24 hours prior to arrival at the emergency department. He did not suffer any evidence of other injury either clinically or historically. Imaging was obtained and revealed a nondisplaced trochanteric fracture of the left hip that did not require further intervention regarding surgical fixation etc. per orthopedic consulted. No evidence of other injury present at the time of this evaluation. This information was shared with the patient and his spouse. Case management was consulted to provide any possible assistance for home physical therapy and/or other assistance. Stable at this time for discharge. Medical Records I reviewed the patient's medical records. Lab Data I reviewed the patient's lab results. Radiology Impressions Hip/Pelvis X-Ray 03/29/22 19:46 IMPRESSION: While there is no definite or displaced left hip fracture noted, there is an equivocal left hip subcapital impacted fracture. If patient cannot bear weight, recommend CT pelvis. Pelvis CT 03/29/22 20:42 IMPRESSION: 1. Subtle acute fracture in the left greater trochanter. 2. Multiple chronic findings above. Discharge Plan Discharge Patient Disposition: Home Clinical Impression: Closed nondisplaced fracture of greater trochanter of left femur, Chronic back pain Condition: Stable Prescriptions: New hydrocodone-acetaminophen 7.5-325 mg tablet 1 tab PO Q12H PRN (Reason: pain) Qty: 20 0RF No Action (DME) mobility power wheelchair See Rx Instructions .Route .MEDSUPPLY Qty: 1 0RF Rx Instructions: 99 months (DME) WHEELCHAIR K0001 See Rx Instructions .Route .MEDSUPPLY Qty: 1 0RF Rx Instructions: As directed atorvastatin 20 mg tablet 20 mg PO DAILY 30 Days Qty: 30 5RF clopidogrel 75 mg tablet 75 mg PO DAILY 30 Days Qty: 30 5RF lisinopril 40 mg tablet 40 mg PO DAILY 30 Days Qty: 30 5RF ondansetron 8 mg tablet,disintegrating 8 mg PO Q8H PRN (Reason: nausea and vomiting) Qty: 9 0RF naproxen 500 mg Tablet 1,000 mg PO DAILY PRN (Reason: Pain) oxycodone 5 mg tablet 5 mg PO Q4H PRN (Reason: pain) Qty: 10 0RF ondansetron 4 mg tablet,disintegrating 4 mg PO Q8H PRN (Reason: nausea and vomiting) Qty: 15 0RF ciprofloxacin HCl 500 mg tablet 500 mg PO BID Qty: 20 0RF Discharge Orders: Discharge ED (Routine); Ordered 03/29/22 Ordered By: Kaushik Combs Referrals: Sarah Godoy FNP-C [Primary Care Provider] - Discharge Diet: Usual diet Discharge Activity: Use walker/crutches as instructed and Wheelchair as instructed Patient Instructions: Opioid Safety, Pain Management Activity Restrictions/Additional Instructions: As we discussed you have a break in the hip bone that does not require any surgical treatment or intervention. You should limit weightbearing for the next 2 to 4 weeks to allow for healing to occur. We have provided a prescription for pain medicine to help with your pain control. We also placed a consultation into case management to see if they can provide additional assistance at your home. If you have increasing pain or other concerns you are welcome to return to the emergency department for reevaluation. Coding Level of Care Code ED Machine Guide Base Winder for Darshana Fwd Exam Comprehensive
[2022-03-29 20:02] VITALS: RESP 16
[2022-03-29] MEDS: fentaNYL 50 mcg/mL INJ 2mL IVP (20:02)
[2022-03-29 20:19] VITALS: BP 95/68; PULSE 101; O2SAT 98
--- NOTE | 2022-03-29 20:42 | CTR_ITS ---
PROCEDURE INFORMATION: Exam: CT Pelvis Without Contrast; Skeletal Exam date and time: 03/29/2022 8:52 PM Age: 61 years old Clinical indication: Injury or trauma; Fall; Blunt trauma (contusions or hematomas); Prior surgery; Surgery type: Lumbar laminectomy; Patient HX: Possible fracture noted on left hip xray. ; Additional info: Left hip FX TECHNIQUE: Imaging protocol: Computed tomography of the pelvis without contrast. Exam focused on the skeleton. Radiation optimization: All CT scans at this facility use at least one of these dose optimization techniques: automated exposure control; mA and/or kV adjustment per patient size (includes targeted exams where dose is matched to clinical indication); or iterative reconstruction. COMPARISON: CT abdomen pelvis w con* [id number] 08/21/2021 14:39 RADIATION DOSE METRICS: Total DLP (mGy-cm): 379.41 FINDINGS: Liver: Liver is large and very fatty replaced. Stomach and bowel: Severe sigmoid diverticulosis. Vasculature: Advanced diffuse vascular calcification noted. Bones/joints: A subtle nondisplaced fracture is seen at the left greater trochanter. This does not clearly involve the left femoral neck. Moderate bilateral hip DJD. No dislocation. Severe lower lumbar degenerative change. No other fracture visualized about the pelvis. Soft tissues: Unremarkable. CT/CT pelvis wo con [id number] IMPRESSION: 1. Subtle acute fracture in the left greater trochanter. 2. Multiple chronic findings above.
[2022-03-29] MEDS: HYDROcodone-acetaminophen 7.5-325 mg Tablet 1 TAB PO ×2 (22:30→23:25)
--- NOTE | 2022-03-30 15:13 | DCPLANNER ---
self storage manager had message to speak with patient about home health in the home. self storage manager called phone number [phone], unable to speak with patient or leave a voicemail due to phone not accepting phone calls at this time.
== END 2022-03-29 23:54 | disposition home or self-care (01) ==
PROVIDERS: Emergency Provider Emergency Medicine; PCP Nurse Practitioner Family
DX: S72.115A Nondisplaced fracture of greater trochanter of left femur, initial encounter for closed fracture (principal); G89.29 Other chronic pain; M54.9 Dorsalgia, unspecified; Z79.02 Long term (current) use of antithrombotics/antiplatelets; F17.210 Nicotine dependence, cigarettes, uncomplicated; E78.5 Hyperlipidemia, unspecified; I10 Essential (primary) hypertension; Z86.73 Personal history of transient ischemic attack (TIA), and cerebral infarction without residual deficits; W06.XXXA Fall from bed, initial encounter
CPT/HCPCS: 72192; 73502; 96374; 99285; J3010